=== PATIENT | female | born 1940 | race Caucasian/White ===

== ENCOUNTER 2018-06-05 09:30 | Emergency (ER) | payer OTHER, BC | END 2018-06-05 11:35 | disposition home or self-care (01) | LOC: ED 09:30 ==

== ENCOUNTER 2018-11-14 18:49 | Emergency (ER) | payer OTHER, BC ==
[~2018-11-14] VITALS: Ht 162.6 cm; Wt 86.2 kg
[2018-11-14 18:57] VITALS: Ht 162.6 cm; Wt 86.2 kg
[2018-11-14 20:15] VITALS: BP 140/74
== END 2018-11-14 20:15 | disposition home or self-care (01) ==
LOC: ED 18:49
DX: G51.0 Bell's palsy (principal); E78.00 Pure hypercholesterolemia, unspecified; I10 Essential (primary) hypertension
CPT/HCPCS: 82962

== ENCOUNTER 2019-08-05 10:34 | Emergency (ER) | payer OTHER, BC ==
[~2019-08-05] VITALS: Ht 162.6 cm; Wt 83.9 kg
[2019-08-05 10:41] VITALS: Ht 162.6 cm; Wt 83.9 kg
[2019-08-05 11:48] LABS: CALCIUM 9.6 mg/dL (8.5-10.1); CARBON DIOXIDE 26.3 mmol/L (21-32); CHLORIDE SERUM 103 mmol/L (98-107); CREATININE SERUM 1.3 mg/dL (0.6-1.0); GLUCOSE SERUM 112 mg/dL (74-106); POTASSIUM SERUM 3.4 mmol/L (3.5-5.1); SODIUM SERUM 139 mmol/L (136-145)
[2019-08-05 11:53] LABS: ALBUMIN 3.7 g/dL (3.4-5.0); ALKALINE PHOSPHATASE 65 U/L (46-116); ALT/SGPT 23 U/L (14-59); AST/SGOT 13 U/L (15-37); BILIRUBIN TOTAL 0.53 mg/dL (0.20-1.00); TOTAL PROTEIN, SERUM 7.2 g/dL (6.4-8.2)
[2019-08-05 12:20] LABS: BASOPHIL % 0.4 % (0-2); PLATELET COUNT 162 x10^3mcL (130-400); RED CELL DISTRIBUTION WIDTH 12.9 % (11.5-14.5)
[2019-08-05 12:33] VITALS: BP 110/68
== END 2019-08-05 12:33 | disposition home or self-care (01) ==
LOC: ED 10:34
PROVIDERS: Emergency Medicine
DX: N39.0 Urinary tract infection, site not specified (principal); I10 Essential (primary) hypertension; E78.00 Pure hypercholesterolemia, unspecified
CPT/HCPCS: 36415; J0696